=== PATIENT | male | born 1985 | race Hispanic/Latino ===

== ENCOUNTER 2022-08-04 19:54 | Emergency (ER) | payer OTHER ==
[~2022-08-04] VITALS: Ht 162.6 cm; Wt 95.3 kg
[2022-08-04] MEDS: ONDANSETRON 4MG INJ IVP ONE ×2 (21:00→23:21)
[2022-08-04 21:22] LABS: BASOPHILS % (AUTO) 0.5 % (0.0-5.0); EOSINOPHILS % (AUTO) 0.1 % (0.0-8.0); HEMATOCRIT 43.9 % (42-54); MEAN CORPUSCULAR HGB CONC 34.4 g/dL (32.0-36.0); MEAN CORPUSCULAR VOLUME 84.3 fL (79-99); MONOCYTES % (AUTO) 5.3 % (3.0-13.0); NEUTROPHILS % (AUTO) 75.9 % (40.0-77.0); PLATELET COUNT (AUTO) 397 K/uL (130-400); RED BLOOD CELL COUNT(AUTO) 5.21 MIL/uL (4.50-6.20); RED CELL DISTRIBUTION WIDTH 11.9 % (11.0-15.5); WHITE BLOOD COUNT (AUTO) 11.9 K/uL (4.8-10.8)
[2022-08-04 21:41] LABS: ALBUMIN 4.2 g/dL (3.5-5.0); CREATININE 1.1 mg/dL (0.5-1.5); TOTAL PROTEIN, SERUM 8.3 g/dL (6.0-8.3)
[2022-08-04] MEDS: 0.9%NACL 1000ML 1,000 ML IV ONE (23:21)
[2022-08-04] MEDS: POTASSIUM BICARB/CIT AC 25 MEQ TABLET.EFF PO ONE (23:22)
[2022-08-04] MEDS: MORPHINE 4 MG SYG IM ONE (23:22)
[2022-08-04] MEDS: ACETAMINOPHEN 500 MG TABLET PO ONE (23:30)
[2022-08-05] MEDS: AZITHROMYCIN 250 MG TABLET PO STA (04:42)
[2022-08-05] MEDS: AZITHROMYCIN 250 MG TABLET PO ONE (04:43)
[2022-08-05 04:45] VITALS: BP 145/75
== END 2022-08-05 05:03 | disposition home or self-care (01) ==
LOC: EDH 19:54
DX: K52.9 Noninfective gastroenteritis and colitis, unspecified (principal); A05.9 Bacterial foodborne intoxication, unspecified; R10.12 Left upper quadrant pain; Z20.822 Contact with and (suspected) exposure to COVID-19; Z90.49 Acquired absence of other specified parts of digestive tract
CPT/HCPCS: 99285; 74176; 96374; 87635; 96361; 84484; 80053; 83690; 85025; 87880; 87804 ×2; 83605; 36415; 96372; 93005; C9803; J7030; J2405; J2270